=== PATIENT | female | born 1940 | race Caucasian/White ===

== ENCOUNTER 2018-03-16 19:45 | Emergency (ER) | payer MEDICARE ==
[2018-03-16] MEDS ORDERED: Phenazopyridine TAB* 100 MG PO ONE ×2 (20:12→20:56)
[2018-03-16 20:18] VITALS: BP 122/90
[2018-03-16] MEDS ORDERED: Sulfamethox/Trimethoprim DS 800/160* TAB PO ONE (20:54)
--- NOTE | 2018-03-16 21:04 | UC ---
Complaint Female HPI - History Of Current Complaint Chief Complaint: [facility] Stated Complaint: URINARY Frequent urination and dysuria for 3 weeks, worse over 3 days. Time Seen by Provider: 03/16/18 20:16 Hx Obtained From: Patient ?: No - Post bert Onset/Duration: Gradual Onset Timing: Constant Severity Initially: Mild Severity Currently: Moderate Pain Intensity: 5 Pain Scale Used: 0-10 Numeric Radiates to: lower abdomen. Character: Burning Aggravating Factor(s): Urination Alleviating Factor(s): Nothing Associated Signs And Symptoms: Positive: Back Pain. Negative: Fever, Vaginal Bleeding/Discharge, Vaginal Discharge, Nausea, Vomiting(# Of Episodes =) - Risk Factors Ectopic Risk Factor: Negative Ovarian Torsion Risk Factor: Negative - Allergies/Home Medications Allergies/Adverse Reactions: Allergies Allergy/AdvReac Type Severity Reaction Status Date / Time No Known Allergies Allergy Verified 03/16/18 20:03 PMH/Surg Hx/FS Hx/Imm Hx Previously Healthy: No - Surgical History Surgical History: Yes Surgery Procedure, Year, and Place: GALL BLADDER. APPENDECTOMY. HYSTERECTOMY. BILATERAL KNEE REPLACMENT - Family History Known Family History: Positive: Unknown - Social History Occupation: Retired Lives: With Family Alcohol Use: None Substance Use Type: None Smoking Status (MU): Former Smoker Review of Systems Constitutional: Negative Skin: Negative Eyes: Negative ENT: Negative Respiratory: Negative Cardiovascular: Negative Gastrointestinal: Negative Genitourinary: Dysuria, Frequency Motor: Negative Neurovascular: Negative Musculoskeletal: Arthralgia, Decreased ROM - patient has Rheumatoid arthritis Neurological: Negative Psychological: Negative Is Patient Immunocompromised?: Yes - Using meds for RA All Other Systems Reviewed And Are Negative: Yes Physical Exam - Summary Physical Exam Summary: 77 yo thin woman with Hx of RAwho presents with icrased freq . of urination and dysuria for 3 weeks. Admits to diarrhea 3 weeks ago and now, some constipation. No fever. Tried no meds for this. Some right , low back pain. Triage Information Reviewed: Yes Appearance: Thin Vital Signs: Initial Vital Signs Temp 98.5 F 03/16/18 20:06 Pulse 92 03/16/18 20:06 Resp 19 03/16/18 20:06 BP 122/90 03/16/18 20:06 Pulse Ox 98 03/16/18 20:06 Vital Signs Reviewed: Yes Eye Exam: Normal ENT Exam: Normal ENT: Positive: Pharynx normal, TMs normal. Negative: Nasal congestion, Nasal drainage Neck exam: Normal Neck: Positive: Supple, Nontender, No Lymphadenopathy Respiratory: Positive: Lungs clear, No respiratory distress Cardiovascular: Positive: RRR, No Murmur, Pulses Normal, Brisk Capillary Refill Abdomen Description: Positive: Nontender, Soft, CVA Tenderness (R) Bowel Sounds: Positive: Present Pelvic Exam: Positive: Other - NE Musculoskeletal: Positive: No Edema, Strength Limited @, ROM Limited @ - Has RA deformities . Neurological: Positive: Alert, Muscle Tone Normal Psychological Exam: Normal Psychological: Positive: Normal Response To Family, Age Appropriate Behavior Skin Exam: Normal Diagnostics - Laboratory Diagnostic Studies Completed/Ordered: urine dip - positive for blood and leuks. Complaint Female Dx - Differential Dx/Diagnosis Differential Diagnosis/HQI/PQRI: Urinary Tract Infection Provider Diagnoses: uti Discharge - Sign-Out/Discharge Documenting (check all that apply): Discharge - Discharge Plan Condition: Stable Disposition: HOME Prescriptions: Sulfamethoxazole/Trimethoprim [Sulfamethoxazole-Tmp Ds Tablet] 1 each PO BID WITH MEALS 7 Days #14 tablet Patient Education Materials: Urinary Tract Infection in Older Adults (ED) Print Language: [place] Referrals: José Luis Valderrama DIRECTOR OF BANDS [Primary Care Provider] - 1 Week Additional Instructions: Start taking the sulfamethoxazole trimethroprim today and use over the counter AZO to help with pain with urination and frequency. It will turn the urine orange. Increase fluids to stay well hydrated and flush out the bladder. Tylenol can help with pain as well. Follow up with primary care next week. - Billing Disposition and Condition Condition: STABLE Disposition: HOME
== END 2018-03-16 21:04 | disposition home or self-care (01) ==
LOC: UCCORT 19:45
DX: N39.0 Urinary tract infection, site not specified (principal); Z87.891 Personal history of nicotine dependence
CPT/HCPCS: 81003; 87086; 99212; A9270-GY; G0463